=== PATIENT | female | born 1970 | race Caucasian/White ===

== ENCOUNTER 2020-12-09 23:46 | Emergency (ER) | payer MEDICARE, MEDICAID ==
[~2020-12-09] VITALS: Ht 165.1 cm; Wt 123.0 kg
[2020-12-10 00:41] LABS: BILIRUBIN,URINE NEGATIVE (NEG); CLARITY,URINE CLEAR; COLOR,URINE YELLOW; NITRITE,URINE NEGATIVE (NEG); PH,URINE 6.5 (<5.0-8.0); PROTEIN,URINE NEGATIVE (NEG-TRACE); UROBILINOGEN,URINE 0.2 mg/dL (0.2 mg/dL)
[2020-12-10 00:48] LABS: BACTERIA,URINE MOD /HPF (0-FEW); RBC,URINE OCC /HPF (0-2)
[2020-12-10 01:15] LABS: BASO # 0.1 x10^3/uL (0.0-0.2); BASO % 1 % (0-3); EOS # 0.2 x10^3/uL (0.0-0.7); EOS % 4 % (0-3); HEMATOCRIT 36.6 % (36.0-47.0); HEMOGLOBIN 12.3 g/dL (12.0-15.5); LYMPH # 2.4 x10^3/uL (1.0-4.8); LYMPH % 36 % (24-48); MEAN CORPUSCULAR HEMOGLOBIN 30 pg (25-35); MEAN CORPUSCULAR HGB CONC 34 g/dL (31-37); MEAN CORPUSCULAR VOLUME 89 fL (79-100); MONO # 0.5 x10^3/uL (0.0-1.1); MONO % 7 % (0-9); NEUT # 3.5 x10^3/uL (1.8-7.7); NEUT % 53 % (31-73); PLATELET COUNT 175 x10^3/uL (140-400); RED CELL DISTRIBUTION WIDTH 15.1 % (11.5-14.5); WHITE BLOOD COUNT 6.7 x10^3/uL (4.0-11.0)
[2020-12-10 01:23] LABS: CREATININE 1.2 mg/dL (0.6-1.0); GFR 47.7; POTASSIUM 4.5 mmol/L (3.5-5.1)
[2020-12-10 01:29] LABS: ALBUMIN/GLOBULIN RATIO 0.8 (1.0-1.7); TOTAL BILIRUBIN 0.2 mg/dL (0.2-1.0); TOTAL PROTEIN 6.7 g/dL (6.4-8.2)
[2020-12-10] MEDS ORDERED: KETOROLAC 30 MG/ML VIAL. IVP ONE (01:45)
[2020-12-10] MEDS ORDERED: cefTRIAXone IV Push 1 GM VIAL. IVP ONE (01:45)
[2020-12-10] MEDS ORDERED: IV NORMAL SALINE 1000ML BAG 1,000 ML IV ONE (01:45)
[2020-12-10] MEDS ORDERED: IOHEXOL 240 MG/ML 50ML VIAL. PO ONE (02:00)
[2020-12-10] MEDS ORDERED: CONTRAST GIVEN. MC PRN (02:00)
[2020-12-10] MEDS ORDERED: IOHEXOL 300 MG/ML 100ML VIAL. IV ONE (02:00)
--- NOTE | 2020-12-10 02:16 | ED.ADGEN ---
Past Medical History Past Medical History: Asthma, Diabetes-Type II, High Cholesterol, Hypertension, Migraines, Pancreatitis Additional Past Medical Histor: kidney disease stage III, Past Surgical History: Tonsillectomy, Tubal ligation Additional Past Surgical Histo: tubal and iud, appendex out, Smoking Status: Current Every Day Smoker Alcohol Use: Occasionally General Adult EDM: Chief Complaint: ABDOMINAL PAIN HPI: HPI: Patient is a 50-year-old female who presents to the emergency room complaining of 1 month of right lower quadrant abdominal pain. She did see a specialist at [facility] for this. They did an upper EGD that was normal. She states that the pain continues to get worse and is gotten worse over the last 3 to 4 days. She is requesting something for pain. She denies any nausea, vomiting, diarrhea, constipation, fevers, chills, sweats. She has a follow-up with GI on Saturday. Review of Systems: Review of Systems: Complete ROS is negative unless otherwise documented in HPI Current Medications: Current Medications Medications (Trade) Dose Ordered Sig/David Start Time Stop Time Status Last Admin Dose Admin Ceftriaxone Sodium (Rocephin) 1 gm 1X ONCE 12/10/20 01:45 12/10/20 01:46 DC 12/10/20 02:04 1 GM Hyoscyamine (Anaspaz) 0.25 mg 1X ONCE 12/10/20 04:30 12/10/20 04:31 DC 12/10/20 04:40 0.25 MG Info (CONTRAST GIVEN -- Rx MONITORING) 1 each PRN DAILY PRN 12/10/20 02:00 12/10/20 05:10 DC Iohexol (Omnipaque 240 Mg/ml) 30 ml 1X ONCE 12/10/20 02:00 12/10/20 02:01 DC 12/10/20 01:45 30 ML Iohexol (Omnipaque 300 Mg/ml) 75 ml 1X ONCE 12/10/20 02:00 12/10/20 02:01 DC 12/10/20 03:00 75 ML Ketorolac Tromethamine (Toradol 30mg Vial) 30 mg 1X ONCE 12/10/20 01:45 12/10/20 01:46 DC 12/10/20 02:02 30 MG Oxycodone/ Acetaminophen (Percocet 5/325) 1 tab 1X ONCE 12/10/20 05:00 12/10/20 05:01 DC 12/10/20 05:03 1 TAB Sodium Chloride 1,000 ml @ 1,000 mls/hr 1X ONCE 12/10/20 01:45 12/10/20 02:44 DC 12/10/20 02:00 1,000 MLS/HR Allergies: Allergies: Allergies Coded Allergies Type Severity Reaction Last Updated Verified Sulfa (Sulfonamide Antibiotics) Allergy Unknown 12/10/20 Yes Physical Exam: PE: General: Awake, alert, NAD. Well Nourished, well hydrated. Cooperative HEENT: Atraumatic, EOMI, PERRL, airway patent, moist oral mucosa Neck: Supple, trachea midline Respiratory: CTA bilaterally, normal effort, no wheezing/crackles CV: RRR, no murmur, cap refill <2 GI: Soft, nondistended, right lower quadrant tenderness, no masses MSK: No obvious deformities Skin: Warm, dry, intact Neuro: A&O x3, speech NL, sensory and motor grossly intact, no focal deficits Psych: Normal affect, normal mood, not suicidal or homicidal Current Patient Data: Labs: Laboratory Tests Test 12/10/20 00:01 12/10/20 01:05 Urine Collection Type Unknown Urine Color Yellow Urine Clarity Clear Urine pH 6.5 (<5.0-8.0) Urine Specific [place] >=1.030 (1.000-1.030) Urine Protein Negative mg/dL (NEG-TRACE) Urine Glucose (UA) 250 mg/dL (NEG) Urine Ketones (Stick) Trace mg/dL (NEG) Urine Blood Negative (NEG) Urine Nitrite Negative (NEG) Urine Bilirubin Negative (NEG) Urine Urobilinogen Dipstick 0.2 mg/dL (0.2 mg/dL) Urine Leukocyte Esterase Small (NEG) Urine RBC Occ /HPF (0-2) Urine WBC 1-4 /HPF (0-4) Urine Squamous Epithelial Cells Many /LPF Urine Bacteria Mod /HPF (0-FEW) Urine Mucus Slight /LPF White Blood Count 6.7 x10^3/uL (4.0-11.0) Red Blood Count 4.10 x10^6/uL (3.50-5.40) Hemoglobin 12.3 g/dL (12.0-15.5) Hematocrit 36.6 % (36.0-47.0) Mean Corpuscular Volume 89 fL (79-100) Mean Corpuscular Hemoglobin 30 pg (25-35) Mean Corpuscular Hemoglobin Concent 34 g/dL (31-37) Red Cell Distribution Width 15.1 % (11.5-14.5) H Platelet Count 175 x10^3/uL (140-400) Neutrophils (%) (Auto) 53 % (31-73) Lymphocytes (%) (Auto) 36 % (24-48) Monocytes (%) (Auto) 7 % (0-9) Eosinophils (%) (Auto) 4 % (0-3) H Basophils (%) (Auto) 1 % (0-3) Neutrophils # (Auto) 3.5 x10^3/uL (1.8-7.7) Lymphocytes # (Auto) 2.4 x10^3/uL (1.0-4.8) Monocytes # (Auto) 0.5 x10^3/uL (0.0-1.1) Eosinophils # (Auto) 0.2 x10^3/uL (0.0-0.7) Basophils # (Auto) 0.1 x10^3/uL (0.0-0.2) Sodium Level 136 mmol/L (136-145) Potassium Level 4.5 mmol/L (3.5-5.1) Chloride Level 103 mmol/L (98-107) Carbon Dioxide Level 30 mmol/L (21-32) Anion Gap 3 (6-14) L Blood Urea Nitrogen 16 mg/dL (7-20) Creatinine 1.2 mg/dL (0.6-1.0) H Estimated GFR (Cockcroft-Gault) 47.7 BUN/Creatinine Ratio 13 (6-20) Glucose Level 265 mg/dL (70-99) H Calcium Level 9.0 mg/dL (8.5-10.1) Total Bilirubin 0.2 mg/dL (0.2-1.0) Aspartate Amino Transferase (AST) 13 U/L (15-37) L Alanine Aminotransferase (ALT) 25 U/L (14-59) Alkaline Phosphatase 93 U/L (46-116) Total Protein 6.7 g/dL (6.4-8.2) Albumin 3.0 g/dL (3.4-5.0) L Albumin/Globulin Ratio 0.8 (1.0-1.7) L Lipase 117 U/L (73-393) Laboratory Tests 12/10/20 01:05 Laboratory Tests 12/10/20 01:05 Vital Signs: Vital Signs Date Time Temp Pulse Resp B/P (MAP) Pulse Ox O2 Delivery O2 Flow Rate FiO2 12/10/20 05:03 20 97 Room Air 12/10/20 05:01 78 140/78 (98) 12/10/20 00:00 98.4 98.4 EKG: EKG: [] Heart Score: Risk Factors: Risk Factors: DM, Current or recent (<one month) smoker, HTN, HLP, family history of CAD, obesity. Risk Scores: Score 0 - 3: 2.5% MACE over next 6 weeks - Discharge Home Score 4 - 6: 20.3% MACE over next 6 weeks - Admit for Clinical Observation Score 7 - 10: 72.7% MACE over next 6 weeks - Early Invasive Strategies Radiology/Procedures: Radiology/Procedures: [] Course & Med Decision Making: Course & Med Decision Making Pertinent Labs and Imaging studies reviewed. (See chart for details) Patient is a 50-year-old female who presents to the emergency room with right lower quadrant tenderness that is been ongoing for the last month. She has had an EGD done for this which was normal. She has a follow-up with GI on Saturday. CT abdomen pelvis will be done as she has not had 1 of these since the onset of pain along with abdominal labs. CT shows some possible inflammation in the colon that would be consistent with colitis. We will treat her with Augmentin given her ongoing pain. I have recommended that she follow-up with GI as planned on Saturday. Patient's test results and vitals while in the ED were fully reviewed and discussed with the patient. Patient is stable and at this time does not need admission to the hospital. We have discussed strict return precautions and the importance of following up with their Primary Care Physician. Patient stated understanding and was given an opportunity to ask any questions. Patient is in agreement with plan. Dragon Disclaimer: Dragon Disclaimer: This electronic medical record was generated, in whole or in part, using a voice recognition dictation system. Departure Departure Impression: Primary Impression: Colitis Disposition: 01 DC HOME SELF CARE/HOMELESS Condition: STABLE Referrals: MARY MENDEZ MD (PCP) Patient Instructions: Colitis Scripts Hyoscyamine Sulfate (LEVSIN-SL) 0.125 Mg Tab.subl 0.125 MG SL Q6HRS PRN for ABDOMINAL PAIN for 5 Days, #20 TAB Prov: MILLY BARBOSA MD 12/10/20 Amoxicillin/Potassium Clav (AUGMENTIN 875-125 TABLET) 1 Each Tablet 1 TAB PO Q12HR, #20 TAB Prov: MILLY BARBOSA MD 12/10/20 MILLY BARBOSA MD Dec 10, 2020 02:16
--- NOTE | 2020-12-10 03:45 | RAD ---
INDICATION: Reason: abd pain, RLQ, OMNI 240 30 ML IV, OMNI 300 60 ML IV / Spl. Instructions: DRINKING @145 SCAN @0252 / History: . COMPARISON: None. TECHNIQUE: Axial CT images obtained through the abdomen and pelvis with contrast. One or more of the following individualized dose reduction techniques were utilized for this examinat ion: 1. Automated exposure control; 2. Adjustment of the mA and/or kV according to patient size; 3 . Use of iterative reconstruction technique. FINDINGS: Linear opacity left lung base commonly secondary to atelectasis. Abdominal aorta is not aneurysmal. S cattered calcific atherosclerosis. Liver is enlarged. Gallbladder is contracted. No peripancreatic fluid collection. Spleen unremarkable. Prominence of left extrarenal pelvis. Urinary bladder is partially distended. Intrauterine device is seen. No right-sided hydronephrosis. Suture is seen at the right lower quadrant which could be from post ap pendectomy changes. There is some haziness to the fat in the right lower quadrant near the colon. No dilated loops of bowel to suggest obstruction. Bilateral nonspecific perinephric stranding. Degenerative changes of the spine. This contributes to multilevel central canal and neural foraminal stenosis. Subchondral sclerosis at the bilateral femoral heads. IMPRESSION: * There is some edema to the fat in the right side of the abdomen adjacent to the colon. Would corre late with symptoms in the region since causes such as colitis could have this appearance. It may be h elpful to obtain a follow-up to ensure this resolves if the patient has not had a colonoscopy to ensu re that there is not an alternative less likely cause such as colonic mass contributing. * Nonspecific bilateral perinephric stranding. Would correlate with urinalysis to ensure that this i s not secondary to infectious etiology. This is a common finding. Electronically signed by: Harley Ma MD (12/10/2020 3:35 AM) [id number]
[2020-12-10] MEDS ORDERED: HYOS0.1265 SL (04:18)
[2020-12-10] MEDS ORDERED: AMOX1TAB61 PO (04:18)
[2020-12-10] MEDS ORDERED: HYOSCYAMINE 0.125 MG TAB.RAPDIS PO ONE (04:30)
[2020-12-10] MEDS ORDERED: oxyCODONE/APAP 5/325 1 TAB TABLET PO ONE (05:00)
[2020-12-10 05:01] VITALS: BP 140/78
== END 2020-12-10 05:08 | disposition home or self-care (01) ==
LOC: ER 23:46
DX: K52.9 Noninfective gastroenteritis and colitis, unspecified (principal); R10.32 Left lower quadrant pain; Z88.2 Allergy status to sulfonamides; J45.909 Unspecified asthma, uncomplicated; E11.9 Type 2 diabetes mellitus without complications; E78.00 Pure hypercholesterolemia, unspecified; I10 Essential (primary) hypertension; G43.909 Migraine, unspecified, not intractable, without status migrainosus; K86.1 Other chronic pancreatitis; Z90.89 Acquired absence of other organs; Z98.51 Tubal ligation status; Z98.890 Other specified postprocedural states
CPT/HCPCS: 36415; 74177; 80053; 81001; 83690; 85025; 96361; 96374; 96375; 99285; J0696; J1885; J7030; Q9966; Q9967

== ENCOUNTER → 2021-01-06 | Outpatient (CLI) | payer MEDICARE, MEDICAID ==
[2020-12-10 05:01] VITALS: BP 140/78
[~2021-01-06] MED LIST: AMOX1TAB61 PO; HYDR-2759 PO; HYOS0.1265 SL; LEVO500T8 PO; ONDA4TAB7 PO
--- NOTE | 2021-01-06 17:54 | RAD ---
COMPLETE ABDOMINAL ULTRASOUND Clinical History: Reason: CHRONIC RUQ PAIN / Spl. Instructions: / History: Comparison: CT abdomen and pelvis with contrast, December 10, 2020. Technique: Sonographic examination of the abdomen was performed and multiple grayscale and color Dopp ler static images were obtained. Findings: Study is technically difficult due to large body habitus. The spleen and left kidney are not well see n. The liver is borderline increased in echogenicity. Common etiology is fatty infiltration. The liver m easures 23.9 cm. Ultrasound is not sensitive for detecting solid liver lesions. Portal flow is hepato petal. The common bile duct is normal in caliber, measuring 4 mm in diameter. The gallbladder wall is normal. Per report, sonographic Dave sign is negative. There is no cholelit hiasis or pericholecystic fluid. The visualized pancreas is homogeneous. The right kidney is normal in echotexture and measures 10.6 cm. The left kidney is normal in echotex ture and measures 11.3 cm. Corticomedullary differentiation is preserved. There is no hydronephrosis. The spleen is not enlarged, measuring 12.4 cm. Visualized portions of the abdominal aorta and IVC are normal. IMPRESSION: 1. Hepatomegaly. Borderline fatty infiltration of the liver. 2. The gallbladder is normal. Electronically signed by: Derrick Pelletier MD (01/06/2021 5:51 PM) [id number]
== END ==
LOC: US 10:34
PROVIDERS: ATTEND Internal Medicine Gastroenterology
DX: R16.0 Hepatomegaly, not elsewhere classified (principal); K76.0 Fatty (change of) liver, not elsewhere classified; G89.29 Other chronic pain
CPT/HCPCS: 76700

== ENCOUNTER → 2021-01-25 | Outpatient (CLI) | payer MEDICARE, MEDICAID ==
--- NOTE | 2021-01-25 16:19 | KCIC ---
EXAMINATION: US PELVIS COMPLETE, 01/25/2021 2:55 PM CLINICAL INDICATION: Pelvic pain TECHNIQUE: Grayscale, color and spectral Doppler ultrasound images of the pelvis via transabdominal a pproach. COMPARISON: None. FINDINGS: The uterus measures 8.2 x 4.3 x 4.8 cm. An intrauterine device is in appropriate position in the endo metrial canal at the fundus. No myometrial mass. The right ovary measures 1.5 x 1.8 x 1.6 cm. The left ovary measures 2.3 x 2.7 x 1.8 cm. Normal blood flow to both ovaries. No ovarian mass. No adnexal mass or free fluid. IMPRESSION: Intrauterine device in appropriate position. Electronically signed by: Ayla Caldera MD (01/25/2021 4:17 PM) [id number]
== END ==
LOC: KCIC US 14:51
PROVIDERS: ATTEND Family Medicine
DX: Z30.430 Encounter for insertion of intrauterine contraceptive device (principal); R10.2 Pelvic and perineal pain
CPT/HCPCS: 76856

== ENCOUNTER 2021-01-27 14:40 | Emergency (ER) | payer MEDICARE, MEDICAID ==
[~2021-01-27] VITALS: Ht 165.1 cm; Wt 131.8 kg
[~2021-01-27 14:40] MED LIST changes: -HYDR-2759 PO; -LEVO500T8 PO; -ONDA4TAB7 PO
[2021-01-27] MEDS ORDERED: IV NORMAL SALINE 1000ML BAG 1,000 ML IV ONE (16:30)
[2021-01-27] MEDS ORDERED: ONDANSETRON PF 4 MG/2 ML VIAL. IVP ONE (16:30)
[2021-01-27] MEDS ORDERED: MORPHINE SULFATE 4 MG/ML VIAL. IV ONE ×2 (16:30→18:15)
[2021-01-27 16:39] LABS: BASO # 0.1 x10^3/uL (0.0-0.2); BASO % 1 % (0-3); EOS # 0.2 x10^3/uL (0.0-0.7); EOS % 2 % (0-3); HEMATOCRIT 34.9 % (36.0-47.0); HEMOGLOBIN 11.6 g/dL (12.0-15.5); LYMPH # 2.3 x10^3/uL (1.0-4.8); LYMPH % 33 % (24-48); MEAN CORPUSCULAR HEMOGLOBIN 30 pg (25-35); MEAN CORPUSCULAR HGB CONC 33 g/dL (31-37); MEAN CORPUSCULAR VOLUME 90 fL (79-100); MONO # 0.5 x10^3/uL (0.0-1.1); MONO % 7 % (0-9); NEUT # 4.1 x10^3/uL (1.8-7.7); NEUT % 58 % (31-73); PLATELET COUNT 181 x10^3/uL (140-400); RED BLOOD COUNT 3.88 x10^6/uL (3.50-5.40); RED CELL DISTRIBUTION WIDTH 15.9 % (11.5-14.5); WHITE BLOOD COUNT 7.1 x10^3/uL (4.0-11.0)
[2021-01-27 16:41] LABS: BILIRUBIN,URINE NEGATIVE (NEG); CLARITY,URINE CLEAR; COLOR,URINE YELLOW; NITRITE,URINE NEGATIVE (NEG); PROTEIN,URINE NEGATIVE (NEG-TRACE); UROBILINOGEN,URINE 0.2 mg/dL (0.2 mg/dL)
--- NOTE | 2021-01-27 16:46 | PHYS DOC ---
Past Medical History Past Medical History: Asthma, Diabetes-Type II, High Cholesterol, Hypertension, Hypothyroid, Migraines, Pancreatitis Additional Past Medical Histor: kidney disease stage III, Past Surgical History: Appendectomy, Tonsillectomy, Tubal ligation Additional Past Surgical Histo: iud Smoking Status: Current Every Day Smoker Additional Information: 0.75/ppd Alcohol Use: Occasionally General Adult EDM: Chief Complaint: ABDOMINAL PAIN HPI: HPI: Patient is a 50 year old female presents with the chief complaint of abdominal pain. Abdominal pain has been on going since December. Patient was has been evaluated here undergoing a CT and diagnoised with colitis. Patient has also been evaluated by GI undergoing Colonoscopy-- having polyps removed. Patient was referred to have pelvic US last week. Patient states since pelvic ultrasound she has had intense abdominal pain. She states current abdominal pain is the same as previous. Patient pinpoints pain in the lower quadrants right>>left. Patient has associated nausea-- but has not vomiting. Patient has been taking tylenol with no relief. Review of Systems: Review of Systems: Constitutional: Denies fever or chills. [] Eyes: Denies change in visual acuity. [] HENT: Denies nasal congestion or sore throat. [] Respiratory: Denies cough or shortness of breath. [] Cardiovascular: Denies chest pain or edema. [] GI: positive abdominal pain, positive nausea, no vomiting, bloody stools or diarrhea. [] : Denies dysuria. [] Musculoskeletal: Denies back pain or joint pain. [] Integument: Denies rash. [] Neurologic: Denies headache, focal weakness or sensory changes. [] Endocrine: Denies polyuria or polydipsia. [] Lymphatic: Denies swollen glands. [] Psychiatric: Denies depression or anxiety. [] Heart Score: Risk Factors: Risk Factors: DM, Current or recent (<one month) smoker, HTN, HLP, family history of CAD, obesity. Risk Scores: Score 0 - 3: 2.5% MACE over next 6 weeks - Discharge Home Score 4 - 6: 20.3% MACE over next 6 weeks - Admit for Clinical Observation Score 7 - 10: 72.7% MACE over next 6 weeks - Early Invasive Strategies Current Medications: Current Medications Medications (Trade) Dose Ordered Sig/David Start Time Stop Time Status Last Admin Dose Admin Morphine Sulfate (Morphine Sulfate) 4 mg 1X ONCE 01/27/21 16:30 01/27/21 16:32 DC Ondansetron HCl (Zofran) 4 mg 1X ONCE 01/27/21 16:30 01/27/21 16:32 DC Sodium Chloride 1,000 ml @ 1,000 mls/hr 1X ONCE 01/27/21 16:30 01/27/21 17:29 Allergies: Allergies: Allergies Coded Allergies Type Severity Reaction Last Updated Verified Sulfa (Sulfonamide Antibiotics) Allergy Unknown 12/10/20 Yes Physical Exam: PE: General: alert, no acute distress. Skin: warm, dry and intact. Head:: Normocephalic, atraumatic. Neck: Trachea midline. Eyes: EOMI, Normal conjunctiva, No drainage CARDIOVASCULAR: Regular rate and rhythm RESPIRATORY: No respiratory distress Back: Full range of motion. MUSCULOSKELETAL: Full range of motion of bilateral upper and lower extremities. GASTROINTESTINAL: Abdomen soft without rebound or guarding. Tenderness palpation lower abdomen right greater than left NEUROLOGICAL: Alert and noted to person, place and time. No neurological deficits observed Psychiatric: Cooperative. Normal judgment Current Patient Data: Vital Signs: Vital Signs Date Time Temp Pulse Resp B/P (MAP) Pulse Ox O2 Delivery O2 Flow Rate FiO2 01/27/21 15:10 98.7 86 20 169/74 (105) 97 Room Air 98.7 EKG: EKG: [] Radiology/Procedures: Radiology/Procedures: [] Course & Med Decision Making: Course & Med Decision Making Pertinent Labs and Imaging studies reviewed. (See chart for details) [] Patient was evaluated for chief complaint. Work up consisted of laboratory analysis. Results reviewed and discussed with patient. Treatment included morphine and Zofran for patient's symptoms--she states both improved post treatment. Patient without any episodes of vomiting in the department. Patient's urine consistent with a urinary tract infection. Elected against reena maging patient's abdomen. Patient had CT abdomen in December pelvic ultrasound last week and a colonoscopy within the last 3 weeks. Patient states current pain is the same pain that was present prior to December CT abdomen and pelvis. Patient's abdominal exam benign there is no rebound or guarding. Patient will be discharged home with prescription for Levaquin, [place] and Zofran. Dragon Disclaimer: Tito Disclaimer: This electronic medical record was generated, in whole or in part, using a voice recognition dictation system. Departure Departure Impression: Primary Impression: Abdominal pain Additional Impression: Urinary tract infection Disposition: 01 DC HOME SELF CARE/HOMELESS Condition: STABLE Referrals: MARY MENDEZ MD (PCP) Patient Instructions: Abdominal Pain (Nonspecific), Nausea, Adult, Urinary Tract Infection Scripts Ondansetron Hcl (ZOFRAN) 4 Mg Tablet 1 TAB PO Q6HRS, #20 TAB Prov: ELIANE BYERS DO 01/27/21 Hydrocodone/Acetaminophen (Hydrocodone-Acetamin 5-325 mg) 1 Each Tablet 1 EACH PO Q6HRS, #14 TAB Prov: ELIANE BYERS DO 01/27/21 Levofloxacin (LEVOFLOXACIN) 500 Mg Tablet 1 TAB PO DAILY, #7 TAB Prov: ELIANE BYERS DO 01/27/21 ELIANE BYERS DO Jan 27, 2021 16:46
[2021-01-27 16:50] LABS: CALCIUM 8.7 mg/dL (8.5-10.1); GFR 58.9; POTASSIUM 4.3 mmol/L (3.5-5.1)
[2021-01-27 16:55] LABS: ALBUMIN 3.2 g/dL (3.4-5.0); ALBUMIN/GLOBULIN RATIO 0.8 (1.0-1.7); TOTAL BILIRUBIN 0.2 mg/dL (0.2-1.0)
[2021-01-27 17:03] LABS: BACTERIA,URINE FEW /HPF (0-FEW)
[2021-01-27 17:04] LABS: RBC,URINE 0 /HPF (0-2)
[2021-01-27 17:05] LABS: WBC,URINE OCC /HPF (0-4); YEAST,URINE PRESENT /HPF
[2021-01-27] MEDS ORDERED: HYDR-2759 PO (17:20)
[2021-01-27] MEDS ORDERED: LEVO500T8 PO (17:20)
[2021-01-27] MEDS ORDERED: ONDA4TAB7 PO (17:20)
[2021-01-27 18:00] VITALS: BP 135/67
== END 2021-01-27 18:05 | disposition home or self-care (01) ==
LOC: ER 14:40
DX: N39.0 Urinary tract infection, site not specified (principal); J45.909 Unspecified asthma, uncomplicated; E11.9 Type 2 diabetes mellitus without complications; E78.00 Pure hypercholesterolemia, unspecified; I10 Essential (primary) hypertension; E03.9 Hypothyroidism, unspecified; G43.909 Migraine, unspecified, not intractable, without status migrainosus; F17.200 Nicotine dependence, unspecified, uncomplicated; Z90.89 Acquired absence of other organs; Z98.51 Tubal ligation status; Z88.2 Allergy status to sulfonamides
CPT/HCPCS: 36415; 80053; 81001; 83690; 85025; 87086; 96361; 96374; 96375; 96376; 99285; J2270; J2405; J7030

== ENCOUNTER → 2021-02-09 | Outpatient (CLI) | payer MEDICARE, MEDICAID ==
[2021-01-27 18:00] VITALS: BP 135/67
[~2021-02-09] MED LIST changes: +HYDR-2759 PO; +LEVO500T8 PO; +ONDA4TAB7 PO
--- NOTE | 2021-02-10 09:10 | KCIC ---
Bilateral digital screening mammograms with 3-D tomosynthesis: Reason for examination: Routine screening. No previous examinations for comparison. Bilateral mammograms in CC and oblique projections were obtained with 2-D imaging and 3-D tomosynthes is imaging on a Siemens Inspiration unit and reviewed on the workstation. Interpretation was made wit h the benefit of CAD. The skin and nipples show no abnormalities. No abnormal axillary lymph nodes are seen. The breast par enchyma shows scattered fatty and fibroglandular density. (Breast density: Category B.) There are no dominant masses, suspicious calcifications or architectural distortion. Impression: No evidence of malignancy. Recommend routine screening. BI-RAD Category 1: Negative. "Our facility is accredited by the [employer] Mammography Program." This patient's information has been entered into a reminder system for the patient to be notified wit h the results of her examination and a target date for the next mammogram. Electronically signed by: Mansi Pop MD (02/10/2021 9:07 AM) [id number]
== END ==
LOC: KCIC MAMMO 14:30
PROVIDERS: ATTEND Family Medicine
DX: Z12.31 Encounter for screening mammogram for malignant neoplasm of breast (principal)
CPT/HCPCS: 77067

== ENCOUNTER 2021-06-07 23:58 | Emergency (ER) | payer OTHER, MEDICAID ==
[~2021-06-07] VITALS: Ht 165.1 cm; Wt 125.0 kg
[~2021-06-07 23:58] MED LIST changes: -LEVO500T8 PO; +LEVO500T9 PO
[2021-06-08 00:32] LABS: BASO # 0.1 x10^3/uL (0.0-0.2); BASO % 1 % (0-3); EOS # 0.5 x10^3/uL (0.0-0.7); EOS % 6 % (0-3); HEMATOCRIT 36.3 % (36.0-47.0); HEMOGLOBIN 12.4 g/dL (12.0-15.5); LYMPH # 1.8 x10^3/uL (1.0-4.8); LYMPH % 23 % (24-48); MEAN CORPUSCULAR HEMOGLOBIN 30 pg (25-35); MEAN CORPUSCULAR HGB CONC 34 g/dL (31-37); MEAN CORPUSCULAR VOLUME 87 fL (79-100); MONO # 0.6 x10^3/uL (0.0-1.1); MONO % 8 % (0-9); NEUT # 4.9 x10^3/uL (1.8-7.7); NEUT % 62 % (31-73); PLATELET COUNT 196 x10^3/uL (140-400); RED BLOOD COUNT 4.19 x10^6/uL (3.50-5.40); RED CELL DISTRIBUTION WIDTH 15.8 % (11.5-14.5); WHITE BLOOD COUNT 7.9 x10^3/uL (4.0-11.0)
[2021-06-08 00:47] LABS: CALCIUM 9.5 mg/dL (8.5-10.1); CREATININE 1.2 mg/dL (0.6-1.0); GFR 47.7; POTASSIUM 4.3 mmol/L (3.5-5.1)
[2021-06-08] MEDS ORDERED: KETOROLAC 30 MG/ML VIAL. IVP ONE (02:30)
[2021-06-08] MEDS ORDERED: AZIT250T PO (02:56)
[2021-06-08] MEDS ORDERED: MELO15TA23 PO (02:56)
--- NOTE | 2021-06-08 02:57 | ED.ADGEN ---
Past Medical History Past Medical History: Asthma, Diabetes-Type II, High Cholesterol, Hypertension, Hypothyroid, Migraines, Pancreatitis Additional Past Medical Histor: kidney disease stage III, Past Surgical History: Appendectomy, Tonsillectomy, Tubal ligation Additional Past Surgical Histo: iud Smoking Status: Current Every Day Smoker Alcohol Use: Occasionally General Adult EDM: Chief Complaint: CHEST PAIN HPI: HPI: Patient is a 50-year-old female who presents to the emergency room complaining of cough, right-sided chest pain, and generally not feeling well for the last 2 to 3 days. Patient states that her chest pains are often sharp in nature. She states they occur more when she is coughing or taking deep breaths. She denies any shortness of breath. She is never had pain like this previously. She states is lasting longer and longer. She denies any, swelling. She has had all of her Covid vaccines. Review of Systems: Review of Systems: Complete ROS is negative unless otherwise documented in HPI Current Medications: Current Medications Medications (Trade) Dose Ordered Sig/David Start Time Stop Time Status Last Admin Dose Admin Ketorolac Tromethamine (Toradol 30mg Vial) 30 mg 1X ONCE 06/08/21 02:30 06/08/21 02:31 DC 06/08/21 02:31 30 MG Allergies: Allergies: Allergies Coded Allergies Type Severity Reaction Last Updated Verified Sulfa (Sulfonamide Antibiotics) Allergy Unknown 12/10/20 Yes Physical Exam: PE: General: Awake, alert, NAD. Well Nourished, well hydrated. Cooperative HEENT: Atraumatic, EOMI, PERRL, airway patent, moist oral mucosa Neck: Supple, trachea midline Respiratory: CTA bilaterally, normal effort, no wheezing/crackles CV: RRR, no murmur, cap refill <2 GI: Soft, nondistended, nontender, no masses MSK: No obvious deformities Skin: Warm, dry, intact Neuro: A&O x3, speech NL, sensory and motor grossly intact, no focal deficits Psych: Normal affect, normal mood, not suicidal or homicidal Current Patient Data: Labs: Laboratory Tests Test 06/08/21 00:20 06/08/21 01:25 White Blood Count 7.9 x10^3/uL (4.0-11.0) Red Blood Count 4.19 x10^6/uL (3.50-5.40) Hemoglobin 12.4 g/dL (12.0-15.5) Hematocrit 36.3 % (36.0-47.0) Mean Corpuscular Volume 87 fL (79-100) Mean Corpuscular Hemoglobin 30 pg (25-35) Mean Corpuscular Hemoglobin Concent 34 g/dL (31-37) Red Cell Distribution Width 15.8 % (11.5-14.5) H Platelet Count 196 x10^3/uL (140-400) Neutrophils (%) (Auto) 62 % (31-73) Lymphocytes (%) (Auto) 23 % (24-48) L Monocytes (%) (Auto) 8 % (0-9) Eosinophils (%) (Auto) 6 % (0-3) H Basophils (%) (Auto) 1 % (0-3) Neutrophils # (Auto) 4.9 x10^3/uL (1.8-7.7) Lymphocytes # (Auto) 1.8 x10^3/uL (1.0-4.8) Monocytes # (Auto) 0.6 x10^3/uL (0.0-1.1) Eosinophils # (Auto) 0.5 x10^3/uL (0.0-0.7) Basophils # (Auto) 0.1 x10^3/uL (0.0-0.2) Sodium Level 143 mmol/L (136-145) Potassium Level 4.3 mmol/L (3.5-5.1) Chloride Level 106 mmol/L (98-107) Carbon Dioxide Level 29 mmol/L (21-32) Anion Gap 8 (6-14) Blood Urea Nitrogen 14 mg/dL (7-20) Creatinine 1.2 mg/dL (0.6-1.0) H Estimated GFR (Cockcroft-Gault) 47.7 Glucose Level 130 mg/dL (70-99) H Calcium Level 9.5 mg/dL (8.5-10.1) Troponin I Quantitative < 0.017 ng/mL (0.000-0.055) BB-Chk-W-Type Natriuretic Peptide 282 pg/mL (0-124) H D-Dimer (Amber) 0.31 ug/mlFEU (0.00-0.50) Laboratory Tests 06/08/21 00:20 Laboratory Tests 06/08/21 00:20 Vital Signs: Vital Signs Date Time Temp Pulse Resp B/P (MAP) Pulse Ox O2 Delivery O2 Flow Rate FiO2 06/08/21 03:00 85 20 110/61 (77) 93 Room Air 06/08/21 00:30 98.2 98.2 EKG: EKG: [] Heart Score: C/O Chest Pain: N/A Risk Factors: Risk Factors: DM, Current or recent (<one month) smoker, HTN, HLP, family history of CAD, obesity. Risk Scores: Score 0 - 3: 2.5% MACE over next 6 weeks - Discharge Home Score 4 - 6: 20.3% MACE over next 6 weeks - Admit for Clinical Observation Score 7 - 10: 72.7% MACE over next 6 weeks - Early Invasive Strategies Radiology/Procedures: Radiology/Procedures: [] Course & Med Decision Making: Course & Med Decision Making Pertinent Labs and Imaging studies reviewed. (See chart for details) Patient is a 50-year-old female who presents to the emergency room complaining of atypical left-sided chest pain. Patient has associated cough with her pain suggesting more of a pleuritis. Chest x-ray shows signs of atypical pneumonia. Lab work is unremarkable. Patient's troponin is normal. I do not believe that this is cardiac in nature. She is very well-appearing. She will be discharged home on antibiotics. Patient's test results and vitals while in the ED were fully reviewed and discussed with the patient. Patient is stable and at this time does not need admission to the hospital. We have discussed strict return precautions and the importance of following up with their Primary Care Physician. Patient stated understanding and was given an opportunity to ask any questions. Patient is in agreement with plan. Dragon Disclaimer: Dragon Disclaimer: This electronic medical record was generated, in whole or in part, using a voice recognition dictation system. Departure Departure Impression: Primary Impression: Atypical pneumonia Disposition: HOME / SELF CARE / HOMELESS Condition: STABLE Referrals: MARY MENDEZ MD (PCP) Patient Instructions: Pneumonia, Adult Scripts Meloxicam (MELOXICAM) 15 Mg Tablet 1 TAB PO DAILY for 10 Days, #10 TAB 0 Refills Prov: MILLY BARBOSA MD 06/08/21 Azithromycin (ZITHROMAX) 250 Mg Tablet 1 PKG PO UD, #6 TAB Prov: MILLY BARBOSA MD 06/08/21 MILLY BARBOSA MD Jun 08, 2021 02:56
[2021-06-08 03:00] VITALS: BP 110/61
--- NOTE | 2021-06-08 04:16 | RAD ---
EXAM: CHEST 1 VIEW History: Chest pain COMPARISON: None available. TECHNIQUE: Single portable radiograph of the chest FINDINGS: The cardiac silhouette is unremarkable. Mild bibasilar lung atelectasis or infiltrates. Th e costophrenic sulci are clear and well demarcated. IMPRESSION: Mild bibasilar lung atelectasis or infiltrates. Electronically signed by: Tez Camarena MD (06/08/2021 4:14 AM) [id number]
--- NOTE | 2021-06-08 07:07 | EKG ---
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
== END 2021-06-08 03:21 | disposition home or self-care (01) ==
LOC: ER 23:58
DX: J18.9 Pneumonia, unspecified organism (principal); E11.9 Type 2 diabetes mellitus without complications; E78.00 Pure hypercholesterolemia, unspecified; J45.909 Unspecified asthma, uncomplicated; I10 Essential (primary) hypertension; E03.9 Hypothyroidism, unspecified; G43.909 Migraine, unspecified, not intractable, without status migrainosus; F17.200 Nicotine dependence, unspecified, uncomplicated; Z88.2 Allergy status to sulfonamides
CPT/HCPCS: 36415; 71045; 80048; 83880; 84484; 85025; 85379; 93005; 96374; 99285; J1885

== ENCOUNTER 2021-06-21 19:56 | Emergency (ER) | payer OTHER, MEDICAID ==
[~2021-06-21] VITALS: Ht 170.2 cm; Wt 80.0 kg
[~2021-06-21 19:56] MED LIST changes: +AZIT250T PO; +LEVO500T8 PO; -LEVO500T9 PO; +MELO15TA23 PO
--- NOTE | 2021-06-21 21:57 | PHYS DOC ---
Past Medical History Past Medical History: Asthma, Diabetes-Type II, High Cholesterol, Hypertension, Hypothyroid, Migraines, Pancreatitis Additional Past Medical Histor: kidney disease stage III, Past Surgical History: Appendectomy, Tonsillectomy, Tubal ligation Additional Past Surgical Histo: iud Smoking Status: Current Every Day Smoker Alcohol Use: Occasionally General Adult EDM: Chief Complaint: COUGH HPI: HPI: Patient is a 50 year [id number] female past medical history of hypertension hyperlipidemia diabetes hypothyroid presents with a chief complaint of cough and suprapubic discomfort. Patient states cough has been ongoing for 1 month progressively coming worse. Cough is without sputum production she denies any associated fevers or chills. Patient has been vaccinated against Covid. Patient also complains of suprapubic discomfort. Patient states pain has been ongoing since Saturday. Pain is also increased since onset. Pain is suprapubic and it does not radiate. Patient states she has nausea but has not vomited she denies any new diarrhea. Review of Systems: Review of Systems: Review of systems: Constitutional symptoms- No fever, no chills. Eyes- No Discharge, No Visual Loss Respiratory symptoms- No shortness of breath, No wheezing, No Dyspnea on Exert ion positive cough Cardiovascular Systems; No chest pain, No Palpitations, No syncope Gastrointestinal symptoms: Positive abdominal pain, Positive nausea, no vomiting or diarrhea. Genitourinary symptoms: No dysuria. Musculoskeletal symptoms: No back pain No extremity pain. NEUROLOGICAL Symptoms: No headache, no generalized weakness; No focal Weakness Skin: No rash. Heart Score: C/O Chest Pain: N/A Risk Factors: Risk Factors: DM, Current or recent (<one month) smoker, HTN, HLP, family history of CAD, obesity. Risk Scores: Score 0 - 3: 2.5% MACE over next 6 weeks - Discharge Home Score 4 - 6: 20.3% MACE over next 6 weeks - Admit for Clinical Observation Score 7 - 10: 72.7% MACE over next 6 weeks - Early Invasive Strategies Allergies: Allergies: Allergies Coded Allergies Type Severity Reaction Last Updated Verified Sulfa (Sulfonamide Antibiotics) Allergy Unknown 12/10/20 Yes Physical Exam: PE: Constitutional: Well developed, well nourished, no acute distress, non-toxic appearance. [] HENT: Normocephalic, atraumatic, bilateral external ears normal, oropharynx moist, no oral exudates, nose normal. [] Eyes: PERRLA, EOMI, conjunctiva normal, no discharge. [] Neck: Normal range of motion, no tenderness, supple, no stridor. [] Cardiovascular:Heart rate regular rhythm, no murmur [] Lungs & Thorax: Bilateral breath sounds clear to auscultation [] Abdomen: Bowel sounds normal, soft, no tenderness, no masses, no pulsatile masses. [] Skin: Warm, dry, no erythema, no rash. [] Back: No tenderness, no CVA tenderness. [] Extremities: No tenderness, no cyanosis, no clubbing, ROM intact, no edema. [] Neurologic: Alert and oriented X 3, normal motor function, normal sensory function, no focal deficits noted. [] Psychologic: Affect normal, judgement normal, mood normal. [] Current Patient Data: Labs: Laboratory Tests Test 06/21/21 20:13 POC Urine HCG, Qualitative Hcg negative (Negative) EKG: EKG: [] Performed at 2143 Rate 78 Normal sinus rhythm No ST elevation No ST depression No acute ND Radiology/Procedures: Radiology/Procedures: [] Impression: HISTORY: Cough AP view was taken of the chest. Acute infiltrate is not identified. Heart is normal in size. There is no effusion. IMPRESSION: 1. No acute infiltrates. Course & Med Decision Making: Course & Med Decision Making Pertinent Labs and Imaging studies reviewed. (See chart for details) [] Patient was evaluated for chief complaint. Work-up consisted of laboratory analysis and radiologic imaging. Results reviewed and discussed with patient. Patient without any acute abnormalities. Patient will be placed on a cough medicine and will prescribe patient antibiotic to treat any upper respiratory and dysuria symptoms. Dragon Disclaimer: Dragon Disclaimer: This electronic medical record was generated, in whole or in part, using a voice recognition dictation system. Departure Departure Impression: Primary Impression: Cough Additional Impression: Dysuria Disposition: 01 HOME / SELF CARE / HOMELESS Condition: STABLE Referrals: MARY MENDEZ MD (PCP) Patient Instructions: Acute Bronchitis Scripts Benzonatate (TESSALON PERLE) 100 Mg Capsule 1 CAP PO TID, #21 CAP Prov: ELIANE BYERS DO 06/21/21 Prednisone (PREDNISONE) 20 Mg Tablet 1 TAB PO UD for 12 Days, #15 TAB Take 2 tabs days 1,2,3 1.5 tabs days 3,4,5 1 tab days 6,7,8 0.5 tab days 9,10,11 Prov: ELIANE BYERS DO 06/21/21 Doxycycline Hyclate (DOXYCYCLINE HYCLATE) 100 Mg Tablet 1 TAB PO BID, #20 TAB Prov: ELIANE BYERS DO 06/21/21 ELIANE BYERS DO Jun 21, 2021 21:57
[2021-06-21] MEDS ORDERED: BENZONATATE 100 MG CAPSULE. PO ONE (22:30)
[2021-06-21 22:31] LABS: BASO # 0.1 x10^3/uL (0.0-0.2); BASO % 1 % (0-3); EOS # 0.4 x10^3/uL (0.0-0.7); EOS % 4 % (0-3); HEMATOCRIT 35.5 % (36.0-47.0); HEMOGLOBIN 11.9 g/dL (12.0-15.5); LYMPH # 2.3 x10^3/uL (1.0-4.8); LYMPH % 28 % (24-48); MEAN CORPUSCULAR HEMOGLOBIN 29 pg (25-35); MEAN CORPUSCULAR HGB CONC 33 g/dL (31-37); MEAN CORPUSCULAR VOLUME 88 fL (79-100); MONO # 0.6 x10^3/uL (0.0-1.1); MONO % 7 % (0-9); NEUT # 4.9 x10^3/uL (1.8-7.7); NEUT % 60 % (31-73); PLATELET COUNT 170 x10^3/uL (140-400); RED BLOOD COUNT 4.06 x10^6/uL (3.50-5.40); RED CELL DISTRIBUTION WIDTH 16.4 % (11.5-14.5); WHITE BLOOD COUNT 8.2 x10^3/uL (4.0-11.0)
[2021-06-21 22:34] LABS: BILIRUBIN,URINE NEGATIVE (NEG); CLARITY,URINE CLEAR; COLOR,URINE YELLOW; NITRITE,URINE NEGATIVE (NEG); PROTEIN,URINE NEGATIVE (NEG-TRACE); UROBILINOGEN,URINE 0.2 mg/dL (0.2 mg/dL)
[2021-06-21 22:47] LABS: CALCIUM 9.3 mg/dL (8.5-10.1); CREATININE 1.1 mg/dL (0.6-1.0); GFR 52.8; POTASSIUM 4.2 mmol/L (3.5-5.1)
--- NOTE | 2021-06-21 22:48 | RAD ---
AP chest. HISTORY: Cough AP view was taken of the chest. Acute infiltrate is not identified. Heart is normal in size. There is no effusion. IMPRESSION: 1. No acute infiltrates. Electronically signed by: Camacho Ag MD (06/21/2021 10:45 PM) [facility]
[2021-06-21 22:52] LABS: ALBUMIN 3.6 g/dL (3.4-5.0); ALBUMIN/GLOBULIN RATIO 0.9 (1.0-1.7); TOTAL BILIRUBIN 0.2 mg/dL (0.2-1.0); TOTAL PROTEIN 7.4 g/dL (6.4-8.2)
[2021-06-21 22:54] LABS: BACTERIA,URINE FEW /HPF (0-FEW); RBC,URINE 0 /HPF (0-2); WBC,URINE OCC /HPF (0-4)
[2021-06-21] MEDS ORDERED: PRED20TA PO (23:06)
[2021-06-21] MEDS ORDERED: DOXY100T PO (23:06)
[2021-06-21] MEDS ORDERED: BENZ100C PO (23:07)
[2021-06-22 00:12] VITALS: BP 133/64
== END 2021-06-22 00:29 | disposition home or self-care (01) ==
LOC: ER 19:56
DX: R05 Cough (principal); R30.0 Dysuria; J45.909 Unspecified asthma, uncomplicated; E11.9 Type 2 diabetes mellitus without complications; E78.00 Pure hypercholesterolemia, unspecified; I10 Essential (primary) hypertension; E03.9 Hypothyroidism, unspecified; G43.909 Migraine, unspecified, not intractable, without status migrainosus; F17.200 Nicotine dependence, unspecified, uncomplicated; Z90.89 Acquired absence of other organs; Z98.51 Tubal ligation status; Z88.2 Allergy status to sulfonamides
CPT/HCPCS: 36415; 71045; 80053; 81001; 81025; 85025; 93005; 99285-25

== ENCOUNTER → 2021-09-20 | Outpatient (CLI) | payer OTHER, MEDICAID ==
[~2021-09-20] MED LIST changes: +BENZ100C PO; +DOXY100T PO; +PRED20TA PO
--- NOTE | 2021-09-20 14:58 | KCIC ---
AP and Lateral Views of the Chest 09/20/2021 2:38 PM Indication: Reason: SOA, DRY COUGH, FATIGUE XS 3-4 DAYS / Spl. Instructions: / History: Comparison: Chest radiograph June 21, 2021 Findings: There is no focal consolidation or infiltrate identified. The cardiomediastinal silhouette is within normal limits. There is no evidence of pneumothorax or pleural effusion. No acute osseous a bnormalities are identified. Impression: No evidence of acute cardiopulmonary process. Electronically signed by: Elfego Raya MD (09/20/2021 2:55 PM) [id number]
== END ==
LOC: KCIC 14:33
PROVIDERS: ATTEND Family Medicine
DX: R06.02 Shortness of breath (principal)
CPT/HCPCS: 71046

== ENCOUNTER → 2021-11-06 | Outpatient (CLI) | payer OTHER, MEDICAID ==
[~2021-11-06] MED LIST changes: -LEVO500T8 PO; +LEVO500T9 PO
--- NOTE | 2021-11-07 09:13 | SLEEP ---
DATE OF STUDY: 11/06/2021 SLEEP STUDY ATTENDING PHYSICIAN: Eduard Neri MD. The patient is a 51-year-old who weighs 267 pounds with a BMI of 44. The patient underwent diagnostic sleep study performed at [facility]. During the night study, the patient spent 531 minutes in bed and slept for 486 minutes with a sleep efficiency of 91%. Sleep latency was 10 minutes with REM latency of 221 minutes. Sleep architecture showed increased stage 1 and stage 2 sleep, absent slow wave and reduced REM sleep. During the night study, the patient had 8 obstructive apneas, 1 mixed apnea, 28 central apneas and 55 hypopneas. The patient's AHI was 11 per hour. Supine AHI 13 per hour. IMPRESSION: 1. Mild obstructive sleep apnea with worsening during REM sleep. Total AHI 11 per hour with a REM AHI of 29 per hour. 2. Nocturnal hypoxia secondary to obstructive sleep apnea. 3. No clinically significant periodic limb movements. RECOMMENDATIONS: 1. The patient would benefit from return to the sleep lab for CPAP titration study. 2. Once the patient is optimally treated with CPAP, then follow up in 4-6 weeks to assess compliance and to document clinical improvement. 3. Weight loss is advised. 4. Avoid COMM[employer] depressants. 5. Cautioned regarding driving until symptoms of sleep apnea resolve with the use of CPAP. WOO DR: Emily TID: [id number] CC: EDUARD NERI MD
== END ==
LOC: SLPLAB 18:41
PROVIDERS: ATTEND Family Medicine
DX: G47.33 Obstructive sleep apnea (adult) (pediatric) (principal); R06.83 Snoring
CPT/HCPCS: 95810

== ENCOUNTER → 2021-11-14 | Outpatient (CLI) | payer OTHER, MEDICAID ==
--- NOTE | 2021-11-15 10:26 | SLEEP ---
DATE OF STUDY: 11/14/2021 SLEEP STUDY The patient is 51 years old who weighs 276 pounds with a BMI of 46. The patient had a previous sleep study and was found to have mild TORREY. The patient's AHI was 11 per hour with a REM AHI of 29 per hour. The patient also had nocturnal hypoxia. The patient was referred for an in-lab CPAP titration study. During the night study, the patient spent 522 minutes in bed and slept for 436 minutes with a sleep efficiency of 84%. Sleep latency was 28 minutes with a REM latency of 100 minutes. Sleep architecture showed increased stage 1 and stage 2 sleep, normal slow wave and normal REM sleep. During the night of the study, the patient's EKG monitoring revealed an average heart rate of 66 beats per minute. No sustained arrhythmias observed. No significant PLMS seen. The patient was started on CPAP at 5 cm of water and titrated up to 15 cm of water. The patient had a few central apneas at the final pressure resulting in an AHI of 6 per hour. These were probably treatment emergent centrals. The patient slept for 172 minutes at the final pressure. The patient had supine as well as REM sleep. The patient's oxygen saturation remained above 88%. The patient used the small size nasal pillows with chin strap. IMPRESSION: 1. Sleep apnea diagnosed by previous sleep study. 2. No clinically significant periodic limb movements. RECOMMENDATIONS: 1. CPAP at 15 cm of water completely eliminated the patient's sleep apnea and should be used on a nightly basis. 2. Follow up in 4-6 weeks to assess compliance with CPAP and to document clinical improvement. 3. Weight loss is strongly advised. 4. Avoid SOC[employer]OBLEMS [employer]IST depressants. 5. Cautioned regarding driving until symptoms of sleep apnea resolve with the use of CPAP. 6. The patient to use small size nasal pillows with chin strap. PATRICE DR: Emily TID: [id number]
== END ==
LOC: RT 18:48
PROVIDERS: ATTEND Family Medicine
DX: G47.30 Sleep apnea, unspecified (principal); R06.83 Snoring
CPT/HCPCS: 95811

== ENCOUNTER 2022-03-30 17:00 | Emergency (ER) | payer OTHER, MEDICAID ==
[2022-03-30] MEDS ORDERED: PROMETHAZINE 12.5 MG TABLET. ONE (18:55)
[2022-03-30] MEDS ORDERED: MORPHINE SULFATE 4 MG/ML INJ. ONE (18:55)
[2022-03-30] MEDS ORDERED: diphenhydrAMINE 50 MG/ML VIAL ONE (18:55)
--- NOTE | 2022-03-31 03:05 | PHYS DOC ---
Past Medical History Past Medical History: Asthma, Diabetes-Type II, High Cholesterol, Hypertension, Hypothyroid, Migraines, Pancreatitis Additional Past Medical Histor: kidney disease stage III, Past Surgical History: Appendectomy, Tonsillectomy, Tubal ligation Additional Past Surgical Histo: iud Smoking Status: Current Every Day Smoker Alcohol Use: None General Adult EDM: Chief Complaint: headache HPI: HPI: Patient is a 51 year old female who present to ER for evaluation of headache. Patient said this is her typical migraine headache, patient had taken her medication at home but did not get better. Symptoms have been going on for the last 4 days. Patient said the lights and the noise make the headache worse. Patient denies any fever, no neck pain, no neck stiffness. Patient denies any head injury. Review of Systems: Review of Systems: Constitutional: Denies fever or chills. [] Eyes: Denies change in visual acuity. [] HENT: Denies nasal congestion or sore throat. [] Respiratory: Denies cough or shortness of breath. [] Cardiovascular: Denies chest pain or edema. [] GI: Denies abdominal pain, nausea, vomiting, bloody stools or diarrhea. [] : Denies dysuria. [] Musculoskeletal: Denies back pain or joint pain. [] Integument: Denies rash. [] Neurologic: Positive for headache, no focal weakness or sensory change Endocrine: Denies polyuria or polydipsia. [] Lymphatic: Denies swollen glands. [] Psychiatric: Denies depression or anxiety. [] Heart Score: C/O Chest Pain: N/A HEART Score for Chest Pain: HEART Score for Chest Pain Response (Comments) Value History Slighlty/Non-Suspicious 0 Total 0 Risk Factors: Risk Factors: DM, Current or recent (<one month) smoker, HTN, HLP, family history of CAD, obesity. Risk Scores: Score 0 - 3: 2.5% MACE over next 6 weeks - Discharge Home Score 4 - 6: 20.3% MACE over next 6 weeks - Admit for Clinical Observation Score 7 - 10: 72.7% MACE over next 6 weeks - Early Invasive Strategies Allergies: Allergies: Allergies Coded Allergies Type Severity Reaction Last Updated Verified Sulfa (Sulfonamide Antibiotics) Allergy Unknown 12/10/20 Yes Physical Exam: PE: Constitutional: Well developed, well nourished, no acute distress, non-toxic appearance. [] HENT: Normocephalic, atraumatic, bilateral external ears normal, oropharynx moist, no oral exudates, nose normal. [] Eyes: PERRLA, EOMI, conjunctiva normal, no discharge. [] Neck: Normal range of motion, no tenderness, supple, no stridor. [] Cardiovascular:Heart rate regular rhythm, no murmur [] Lungs & Thorax: Bilateral breath sounds clear to auscultation [] Abdomen: Bowel sounds normal, soft, no tenderness, no masses, no pulsatile masses. [] Skin: Warm, dry, no erythema, no rash. [] Back: No tenderness, no CVA tenderness. [] Extremities: No tenderness, no cyanosis, no clubbing, ROM intact, no edema. [] Neurologic: Alert and oriented X 3, normal motor function, normal sensory function, no focal deficits noted. [] Psychologic: Affect normal, judgement normal, mood normal. [] EKG: EKG: [] Radiology/Procedures: Radiology/Procedures: [] Course & Med Decision Making: Course & Med Decision Making Pertinent Labs and Imaging studies reviewed. (See chart for details) Patient is a 51-year-old female with a history of migraine headache, presented to ER due to headache. Patient was given medication in ER, she feel much better. Patient was discharged home in stable condition. Dragon Disclaimer: Dragon Disclaimer: This electronic medical record was generated, in whole or in part, using a voice recognition dictation system. Departure Departure Impression: Primary Impression: Migraine headache Disposition: HOME / SELF CARE / HOMELESS Condition: IMPROVED Referrals: MARY MENDEZ MD (PCP) Follow up with your doctor on Saturday for reevaluation Patient Instructions: Migraine Headache Additional Instructions: Thank you for visiting our Emergency Department. We appreciate you trusting us with your care. If any additional problems come up don't hesitate to return to visit us. Please follow up with your primary care provider so they can plan additional care if needed and know about the problem that you had. If symptoms worsen come back to the Emergency Department. Any concerning symptoms that start such as chest pain, shortness of air, weakness or numbness on one side of the body, running high fevers or any other concerning symptoms return to the ER. DOERNE RENNER DO Mar 31, 2022 03:05
== END 2022-03-31 04:16 | disposition home or self-care (01) ==
LOC: ER 17:00
DX: G43.909 Migraine, unspecified, not intractable, without status migrainosus (principal); J45.909 Unspecified asthma, uncomplicated; E11.9 Type 2 diabetes mellitus without complications; E78.00 Pure hypercholesterolemia, unspecified; I10 Essential (primary) hypertension; E03.9 Hypothyroidism, unspecified; F17.200 Nicotine dependence, unspecified, uncomplicated; Z88.2 Allergy status to sulfonamides
CPT/HCPCS: 99281